=== PATIENT | male | born 1945 | race Caucasian/White ===

== ENCOUNTER 2020-12-07 14:08 | Inpatient (IN) ==
[2020-12-07] MEDS ORDERED: SODIUM CHLORIDE 0.9% 1,000 ML IV STA (14:56)
[2020-12-07 15:18] LABS: Basophils % 0.4 % (0.0-0.8); Eosinophils % 0.4 % (0.00-10.9); Hematocrit 26.8 VOL% (42.0-52.0); Hemoglobin 8.7 GM/DL (14.0-18.0); Immature Granulocytes % 0.8 %; Immature Granulocytes Absolute 0.06 #; Lymphocytes % 13.1 % (21.2-54.2); Mean Corpuscular HGB Conc 32.5 GM/DL (32-36); Mean Corpuscular Volume 98.5 FL (87-102); Mean Platelet Volume 9.6 FL (9.6-12.0); Monocytes % 8.7 % (1.7-12.7); Neutrophils % 76.6 % (38.7-73.9); Platelet Count 287 T/CUMM (130-400); Red Blood Count 2.72 MC/CUMM (3.8-5.5); Red Cell Distribution Width 15.5 % (9.3-17.3); White Blood Count 7.9 T/CUMM (4-12)
[2020-12-07 15:37] LABS: Alanine Aminotransferase 58 U/L (16-61); Albumin 3.2 G/DL (3.4-5.0); Alkaline Phosphatase 116 U/L (45-117); Aspartate Amino Transferase 136 U/L (0-37); Blood Urea Nitrogen 81 MG/DL (7-18); Calcium 9.8 MG/DL (8.5-10.1); Carbon Dioxide 24 MMOL/L (21-32); Estimated Glom Filtration Rate 19 ML/MIN; Glucose 127 MG/DL (74-106); Osmolality,Calculated 291.4 MOS/KG (273-304); Potassium 4.6 MMOL/L (3.5-5.1); Sodium 133 MMOL/L (136-145); Total Protein 7.6 G/DL (6.4-8.2)
[2020-12-07 15:44] LABS: Lactic Acid 2.6 MMOL/L (0.4-2.0)
[2020-12-07] MEDS ORDERED: SODIUM CHLORIDE 0.9% 2,350 ML IV ONE (15:45)
[2020-12-07] MEDS ORDERED: VANCOMYCIN INJ 1,250 MG in SODIUM CHLORIDE 0.9% 250 ML IV SCH (16:00)
[2020-12-07 16:32] LABS: Bacteria,Urine Occasional /HPF (Few); Bilirubin,Urine Negative (Negative); Blood, Urine Moderate mg/dL (Negative); Glucose,Urine (UA) 50 mg/dL (Negative); Ketones,Urine Negative (Negative); Nitrite,Urine Negative (Negative); Protein,Urine 30 MG/DL; RBC,Urine 6 /HPF (0-4); Sperm,Urine Occasional /HPF (Negative); Squamous Epithelial Cell,Urine Occasional /HPF (0-10); Urine Appearance Slightly Hazy (Clear); Urine Color Yellow (Yellow); Urine Specific Gravity 1.011 (1.001-1.035); Urine Urobilinogen < 2.0 EU/DL (0.2-1.0)
[2020-12-07] MEDS ORDERED: VANCOMYCIN INJ 1,250 MG in SODIUM CHLORIDE 0.9% 250 ML IV PRN (16:36)
[2020-12-07] MEDS: PIPERACILLIN/TAZOBACTAM 3,375 MG in SODIUM CHLORIDE 0.9% 100 ML IV SCH (17:00)
[2020-12-07] MEDS ORDERED: GLUCAGON 1 MG VIAL IM PRN ×3 (17:31→18:53)
[2020-12-07] MEDS ORDERED: DEXTROSE 50% 25 GM/50 ML VIAL IV PRN ×3 (17:31→18:53)
[2020-12-07] MEDS ORDERED: ONDANSETRON 4 MG/2 ML VIAL IV PRN (18:31)
[2020-12-07] MEDS ORDERED: ACETAMINOPHEN 325 MG TABLET PO PRN (18:31)
[2020-12-07] MEDS ORDERED: VANCOMYCIN 1,000 MG VIAL ONE (19:30)
[2020-12-07] MEDS: ALBUTEROL 2.5 MG/3 ML NEB RESP TX SCH (19:32)
[2020-12-07] MEDS ORDERED: VANCOMYCIN INJ 2,000 MG in SODIUM CHLORIDE 0.9% 500 ML IV ONE (20:00)
[2020-12-07] MEDS: SODIUM CHLORIDE 0.9% 1,000 ML IV SCH (20:00)
[2020-12-07] MEDS: levETIRAcetam 500 MG TABLET PO SCH (20:55)
[2020-12-07] MEDS: ATORVASTATIN 40 MG TABLET PEG SCH (20:56)
[2020-12-07] MEDS ORDERED: cefTRIAXone 2,000 MG in SODIUM CHLORIDE 0.9% 100 ML IV SCH (21:00)
[2020-12-07] MEDS ORDERED: ENOXAPARIN 30 MG/0.3 ML SYRINGE SUBCUT SCH (21:00)
[2020-12-08] MEDS: SODIUM CHLORIDE 0.9% 1,000 ML IV SCH ×4 (01:33→19:00)
[2020-12-08] MEDS: ALBUTEROL 2.5 MG/3 ML NEB RESP TX SCH ×4 (01:40→19:50)
[2020-12-08] MEDS: PIPERACILLIN/TAZOBACTAM 3,375 MG in SODIUM CHLORIDE 0.9% 100 ML IV SCH ×3 (02:15→20:17)
[2020-12-08] MEDS: INSULIN REGULAR 100 UNIT/ML SUBCUT SCH ×5 (02:22→20:17)
[2020-12-08 04:46] LABS: Basophils % 0.2 % (0.0-0.8); Eosinophils # 0.1 10*3/uL (0.0-0.87); Eosinophils % 1.1 % (0.00-10.9); Hematocrit 23.5 VOL% (42.0-52.0); Hemoglobin 7.7 GM/DL (14.0-18.0); Immature Granulocytes % 0.4 %; Immature Granulocytes Absolute 0.02 #; Lymphocytes # 0.8 10*3/uL (1.4-4.0); Lymphocytes % 13.6 % (21.2-54.2); Mean Corpuscular HGB Conc 32.8 GM/DL (32-36); Mean Corpuscular Volume 99.2 FL (87-102); Mean Platelet Volume 9.5 FL (9.6-12.0); Monocytes % 7.6 % (1.7-12.7); Neutrophils % 77.1 % (38.7-73.9); Platelet Count 220 T/CUMM (130-400); Red Blood Count 2.37 MC/CUMM (3.8-5.5); Red Cell Distribution Width 15.2 % (9.3-17.3); White Blood Count 5.7 T/CUMM (4-12)
[2020-12-08 05:07] LABS: Calcium 8.5 MG/DL (8.5-10.1); Osmolality,Calculated 294.7 MOS/KG (273-304); Potassium 4.4 MMOL/L (3.5-5.1)
[2020-12-08] MEDS ORDERED: amLODIPine 10 MG TABLET PEG SCH (09:00)
[2020-12-08] MEDS: levETIRAcetam 500 MG TABLET PO SCH ×2 (10:00→20:17)
[2020-12-08] MEDS: CLOPIDOGREL 75 MG TABLET PEG SCH (10:02)
[2020-12-08] MEDS: PANTOPRAZOLE 40 MG TABLET PO SCH (10:05)
[2020-12-08] MEDS: OLANZapine 5 MG TABLET PO SCH (10:08)
[2020-12-08 12:59] LABS: % Iron Saturation 21.4 % (18-50); Ferritin 188.7 ng/ml (26-388)
[2020-12-08] MEDS: MENTHOL/ZINC OXIDE OINT 71 GM JAR TOP SCH (17:00)
[2020-12-08] MEDS: FERROUS SULFATE 325 MG TABLET PO SCH (17:40)
[2020-12-08] MEDS: ATORVASTATIN 40 MG TABLET PEG SCH (20:17)
[2020-12-09] MEDS: ALBUTEROL 2.5 MG/3 ML NEB RESP TX SCH ×4 (01:27→18:23)
[2020-12-09] MEDS: SODIUM CHLORIDE 0.9% 1,000 ML IV SCH ×2 (03:26→15:42)
[2020-12-09] MEDS: PIPERACILLIN/TAZOBACTAM 3,375 MG in SODIUM CHLORIDE 0.9% 100 ML IV SCH (03:27)
[2020-12-09 05:39] LABS: Basophils % 0.8 % (0.0-0.8); Eosinophils # 0.1 10*3/uL (0.0-0.87); Eosinophils % 3.4 % (0.00-10.9); Hematocrit 23.6 VOL% (42.0-52.0); Hemoglobin 7.9 GM/DL (14.0-18.0); Immature Granulocytes % 0.5 %; Immature Granulocytes Absolute 0.02 #; Lymphocytes # 0.9 10*3/uL (1.4-4.0); Lymphocytes % 23.3 % (21.2-54.2); Mean Corpuscular HGB Conc 33.5 GM/DL (32-36); Mean Corpuscular Volume 97.9 FL (87-102); Mean Platelet Volume 9.3 FL (9.6-12.0); Monocytes % 7.9 % (1.7-12.7); Neutrophils % 64.1 % (38.7-73.9); Platelet Count 231 T/CUMM (130-400); Red Blood Count 2.41 MC/CUMM (3.8-5.5); Red Cell Distribution Width 14.7 % (9.3-17.3); White Blood Count 3.8 T/CUMM (4-12)
[2020-12-09 05:53] LABS: Calcium 9.4 MG/DL (8.5-10.1); Potassium 4.1 MMOL/L (3.5-5.1)
[2020-12-09] MEDS: INSULIN REGULAR 100 UNIT/ML SUBCUT SCH ×4 (09:16→21:28)
[2020-12-09] MEDS: PANTOPRAZOLE 40 MG TABLET PO SCH (11:12)
[2020-12-09] MEDS: MENTHOL/ZINC OXIDE OINT 71 GM JAR TOP SCH (11:12)
[2020-12-09] MEDS: FERROUS SULFATE 325 MG TABLET PO SCH ×3 (11:12→18:18)
[2020-12-09] MEDS: levETIRAcetam 500 MG TABLET PO SCH ×2 (11:12→21:27)
[2020-12-09] MEDS: CLOPIDOGREL 75 MG TABLET PEG SCH (11:12)
[2020-12-09] MEDS: OLANZapine 5 MG TABLET PO SCH (11:13)
[2020-12-09] MEDS ORDERED: cefTRIAXone 1,000 MG in SODIUM CHLORIDE 0.9% 100 ML IV SCH (15:00)
[2020-12-09] MEDS: ATORVASTATIN 40 MG TABLET PEG SCH (21:27)
[2020-12-10] MEDS: ALBUTEROL 2.5 MG/3 ML NEB RESP TX SCH ×4 (02:00→19:32)
[2020-12-10 06:11] LABS: Basophils % 0.5 % (0.0-0.8); Eosinophils # 0.1 10*3/uL (0.0-0.87); Eosinophils % 1.8 % (0.00-10.9); Immature Granulocytes % 0.2 %; Immature Granulocytes Absolute 0.01 #; Lymphocytes # 1.1 10*3/uL (1.4-4.0); Lymphocytes % 23.8 % (21.2-54.2); Mean Corpuscular HGB Conc 33.3 GM/DL (32-36); Mean Corpuscular Volume 97.1 FL (87-102); Mean Platelet Volume 9.3 FL (9.6-12.0); Neutrophils % 64.7 % (38.7-73.9); Platelet Count 266 T/CUMM (130-400); Red Blood Count 2.78 MC/CUMM (3.8-5.5); Red Cell Distribution Width 14.6 % (9.3-17.3); White Blood Count 4.4 T/CUMM (4-12)
[2020-12-10 06:42] LABS: Calcium 9.8 MG/DL (8.5-10.1); Osmolality,Calculated 295.6 MOS/KG (273-304)
[2020-12-10] MEDS: INSULIN REGULAR 100 UNIT/ML SUBCUT SCH ×4 (07:19→21:17)
[2020-12-10] MEDS: OLANZapine 5 MG TABLET PO SCH (08:21)
[2020-12-10] MEDS: FERROUS SULFATE 325 MG TABLET PO SCH ×3 (08:21→17:30)
[2020-12-10] MEDS: levETIRAcetam 500 MG TABLET PO SCH ×2 (08:21→21:27)
[2020-12-10] MEDS: PANTOPRAZOLE 40 MG TABLET PO SCH (08:22)
[2020-12-10] MEDS: MENTHOL/ZINC OXIDE OINT 71 GM JAR TOP SCH (08:22)
[2020-12-10] MEDS: CLOPIDOGREL 75 MG TABLET PEG SCH (08:22)
[2020-12-10] MEDS ORDERED: ALBUTEROL/IPRATROPIUM 3 ML NEB RESP TX PRN (14:05)
[2020-12-10] MEDS: LEVOFLOXACIN INJ 250 MG/50 ML PREMIX IV SCH (14:38)
[2020-12-10] MEDS: PIPERACILLIN/TAZOBACTAM 3,375 MG in SODIUM CHLORIDE 0.9% 100 ML IV SCH ×2 (15:40→22:27)
[2020-12-10] MEDS: ATORVASTATIN 40 MG TABLET PEG SCH (21:27)
[2020-12-11] MEDS: ALBUTEROL 2.5 MG/3 ML NEB RESP TX SCH ×4 (00:03→19:17)
[2020-12-11 05:22] LABS: Basophils % 0.4 % (0.0-0.8); Eosinophils # 0.1 10*3/uL (0.0-0.87); Eosinophils % 1.6 % (0.00-10.9); Hematocrit 25.9 VOL% (42.0-52.0); Hemoglobin 8.6 GM/DL (14.0-18.0); Immature Granulocytes % 0.6 %; Immature Granulocytes Absolute 0.03 #; Lymphocytes # 1.1 10*3/uL (1.4-4.0); Lymphocytes % 21.6 % (21.2-54.2); Mean Corpuscular HGB Conc 33.2 GM/DL (32-36); Mean Platelet Volume 9.5 FL (9.6-12.0); Monocytes % 8.6 % (1.7-12.7); Neutrophils % 67.2 % (38.7-73.9); Platelet Count 256 T/CUMM (130-400); Red Blood Count 2.67 MC/CUMM (3.8-5.5); Red Cell Distribution Width 14.7 % (9.3-17.3); White Blood Count 4.9 T/CUMM (4-12)
[2020-12-11 05:46] LABS: Calcium 9.1 MG/DL (8.5-10.1); Osmolality,Calculated 298.4 MOS/KG (273-304); Potassium 3.9 MMOL/L (3.5-5.1)
[2020-12-11] MEDS: PIPERACILLIN/TAZOBACTAM 3,375 MG in SODIUM CHLORIDE 0.9% 100 ML IV SCH ×3 (06:16→23:00)
[2020-12-11] MEDS: INSULIN REGULAR 100 UNIT/ML SUBCUT SCH ×4 (08:28→23:55)
[2020-12-11] MEDS: MENTHOL/ZINC OXIDE OINT 71 GM JAR TOP SCH (08:34)
[2020-12-11] MEDS: CLOPIDOGREL 75 MG TABLET PEG SCH (08:34)
[2020-12-11] MEDS: levETIRAcetam 500 MG TABLET PO SCH ×2 (08:34→23:40)
[2020-12-11] MEDS: PANTOPRAZOLE 40 MG TABLET PO SCH (08:34)
[2020-12-11] MEDS: FERROUS SULFATE 325 MG TABLET PO SCH ×3 (08:34→17:09)
[2020-12-11] MEDS: LEVOFLOXACIN INJ 250 MG/50 ML PREMIX IV SCH (13:51)
[2020-12-11] MEDS: NYSTATIN 500,000 UNIT/5 ML UDCUP SWISH/SWAL SCH ×3 (13:51→22:50)
[2020-12-11] MEDS: SODIUM CHLORIDE 0.9% 1,000 ML IV SCH (14:47)
[2020-12-11] MEDS: ATORVASTATIN 40 MG TABLET PEG SCH (23:40)
[2020-12-12] MEDS: ALBUTEROL 2.5 MG/3 ML NEB RESP TX SCH ×3 (00:41→12:41)
[2020-12-12 05:56] LABS: Basophils % 0.4 % (0.0-0.8); Eosinophils # 0.1 10*3/uL (0.0-0.87); Eosinophils % 2.9 % (0.00-10.9); Hematocrit 27.1 VOL% (42.0-52.0); Hemoglobin 8.7 GM/DL (14.0-18.0); Immature Granulocytes % 0.4 %; Immature Granulocytes Absolute 0.02 #; Lymphocytes # 1.2 10*3/uL (1.4-4.0); Lymphocytes % 25.8 % (21.2-54.2); Mean Corpuscular HGB Conc 32.1 GM/DL (32-36); Mean Platelet Volume 9.1 FL (9.6-12.0); Monocytes % 9.1 % (1.7-12.7); Neutrophils % 61.4 % (38.7-73.9); Platelet Count 247 T/CUMM (130-400); Red Blood Count 2.71 MC/CUMM (3.8-5.5); Red Cell Distribution Width 14.8 % (9.3-17.3); White Blood Count 4.8 T/CUMM (4-12)
[2020-12-12 06:10] LABS: Calcium 9.5 MG/DL (8.5-10.1); Osmolality,Calculated 304.1 MOS/KG (273-304); Potassium 3.7 MMOL/L (3.5-5.1)
[2020-12-12] MEDS: PIPERACILLIN/TAZOBACTAM 3,375 MG in SODIUM CHLORIDE 0.9% 100 ML IV SCH ×2 (06:17→14:16)
[2020-12-12] MEDS ORDERED: SODIUM CHLORIDE 0.9% 1,000 ML IV SCH (07:30)
[2020-12-12] MEDS: PANTOPRAZOLE 40 MG TABLET PO SCH (08:34)
[2020-12-12] MEDS: NYSTATIN 500,000 UNIT/5 ML UDCUP SWISH/SWAL SCH ×3 (08:34→17:47)
[2020-12-12] MEDS: CLOPIDOGREL 75 MG TABLET PEG SCH (08:34)
[2020-12-12] MEDS: FERROUS SULFATE 325 MG TABLET PO SCH ×3 (08:34→17:46)
[2020-12-12] MEDS: MENTHOL/ZINC OXIDE OINT 71 GM JAR TOP SCH (08:35)
[2020-12-12] MEDS: levETIRAcetam 500 MG TABLET PO SCH (08:35)
[2020-12-12] MEDS: INSULIN REGULAR 100 UNIT/ML SUBCUT SCH ×3 (08:36→15:40)
[2020-12-12] MEDS ORDERED: LACTATED RINGERS 500 ML IV ONE (09:55)
[2020-12-12] MEDS: LEVOFLOXACIN INJ 250 MG/50 ML PREMIX IV SCH (13:37)
[2020-12-12 16:10] VITALS: BP 117/59
== END 2020-12-12 17:31 | DRG 871 ==
LOC: N.ED 14:08 → SUATTDRO 18:31 → N.EDINP 18:31 → N.TELES 12-08 00:05
PROVIDERS: ADMIT Hospitalist; ATTEND Internal Medicine